=== PATIENT | female | born 1975 | race African-American/Black ===

== ENCOUNTER 2020-05-19 03:40 | Emergency (ER) | payer MEDICAID, OTHER ==
[~2020-05-19] VITALS: Ht 167.6 cm; Wt 91.0 kg
[~2020-05-19 03:40] MED LIST: FERR-43 PO; FERR220S12 PO
[2020-05-19 07:00] VITALS: BP 193/96
[2020-05-19] MEDS ORDERED: HYDROCODONE/ACETAMINOPHEN 10/325MG TABLET PO ONE (07:00)
[2020-05-19] MEDS ORDERED: ONDANSETRON 4MG ODT PO ONE (07:00)
[2020-05-19] MEDS ORDERED: FAMOTIDINE 20MG TABLET PO ONE (07:00)
[2020-05-19 08:06] LABS: BASOPHILS % 1.1 % (0.0-2.0); HEMATOCRIT. 37.6 % (36.0-48.0); HEMOGLOBIN. 11.8 g/dL (12.0-16.0); LYMPHOCYTES % 7.7 % (20.0-50.0); MEAN CORPUSCULAR HEMOGLOBIN 21.4 pg (28.0-32.0); MEAN CORPUSCULAR VOLUME 68.1 fL (81.0-99.0); MEAN PLATELET VOLUME 10.1 fl (7.4-10.4); MONOCYTES % 1.8 % (2.0-8.0); NEUTROPHILS % 89.4 % (40.0-76.0); PLATELET 304 x1000/uL (130-400); RED BLOOD CELL COUNT 5.52 mill/uL (4.2-5.4); RED CELL DISTRIBUTION WIDTH 14.3 % (11.6-14.6)
[2020-05-19 08:09] LABS: PROTHROMBIN TIME 10.3 sec (9.6-11.0)
[2020-05-19 08:14] LABS: CHLORIDE 103 mEq/L (98-107)
[2020-05-19] MEDS ORDERED: SODIUM CHLORIDE 0.9% 1,000 ML IV ONE (08:45)
[2020-05-19 08:46] LABS: PLATELET ESTIMATE NORMAL
[2020-05-19 08:52] LABS: CLARITY URINE CLEAR (CLEAR); COLOR URINE YELLOW (YELLOW); KETONES URINE NEGATIVE (NEGATIVE); LEUKOCYTE ESTERASE URINE NEGATIVE (NEGATIVE); NITRITE URINE NEGATIVE (NEGATIVE); OCCULT BLOOD URINE NEGATIVE (NEGATIVE); PROTEIN URINE TRACE (NEGATIVE); SPECIFIC GRAVITY URINE 1.019 (1.005-1.030); UROBILINOGEN URINE 0.2 E.U./dL (0.2-1.0)
== END 2020-05-19 11:42 | disposition home or self-care (01) ==
LOC: ER 03:40
DX: K85.10 Biliary acute pancreatitis without necrosis or infection (principal)
CPT/HCPCS: 36415; 76705; 80053; 81003; 83690; 85025; 85610; 93005; 99285; J7030; Q0162

== ENCOUNTER 2022-07-05 10:02 | Inpatient (IN) | payer MEDICAID, OTHER ==
[~2022-07-05] VITALS: Ht 167.6 cm; Wt 90.7 kg
[2022-07-05] MEDS ORDERED: MORPHINE SULFATE 4 MG/ML CPJ (NOT FOR IM USE) IV STA (10:20)
[2022-07-05] MEDS ORDERED: FAMOTIDINE 20MG/2ML VIAL IV STA (10:20)
[2022-07-05] MEDS ORDERED: ONDANSETRON HCL 4MG/2ML INJ IV STA (10:20)
[2022-07-05] MEDS ORDERED: SODIUM CHLORIDE 0.9% 1,000 ML IV ONE (10:30)
[2022-07-05] MEDS ORDERED: PIPERACILLIN/TAZ 3.375G PREMIX 50 ML IV ONE (11:45)
[2022-07-05 12:19] LABS: CHLORIDE 99 mEq/L (98-107)
[2022-07-05 12:28] LABS: BASOPHILS % 0.8 % (0.0-2.0); EOSINOPHILS % 0.1 % (0.0-5.0); HEMATOCRIT. 38.9 % (36.0-48.0); HEMOGLOBIN. 12.3 g/dL (12.0-16.0); LYMPHOCYTES % 12.1 % (20.0-50.0); MEAN CORPUSCULAR HEMOGLOBIN 21.6 pg (28.0-32.0); MEAN CORPUSCULAR VOLUME 68.2 fL (81.0-99.0); MONOCYTES % 5.2 % (2.0-8.0); NEUTROPHILS % 81.8 % (40.0-76.0); PLATELET 358 x1000/uL (130-400); RED BLOOD CELL COUNT 5.71 mill/uL (4.2-5.4); RED CELL DISTRIBUTION WIDTH 14.6 % (11.6-14.6)
[2022-07-05 12:52] LABS: HCG SCREEN NEGATIVE
[2022-07-05 13:29] LABS: PLATELET ESTIMATE NORMAL
[2022-07-05] MEDS ORDERED: FAMOTIDINE 20MG/2ML VIAL IV NR (15:00)
[2022-07-05] MEDS ORDERED: PIPERACILLIN/TAZ 3.375G PREMIX 50 ML IV NR (15:00)
[2022-07-05] MEDS ORDERED: MORPHINE SULFATE 4 MG/ML CPJ (NOT FOR IM USE) IV NR (15:00)
[2022-07-05] MEDS ORDERED: ONDANSETRON HCL 4MG/2ML INJ IV NR (15:00)
[2022-07-05] MEDS ORDERED: ONDANSETRON HCL 4MG/2ML INJ IV PRN (17:45)
[2022-07-05] MEDS ORDERED: MORPHINE SULFATE 2 MG/ML CPJ (NOT FOR IM USE) IV PRN (17:45)
[2022-07-05] MEDS ORDERED: NALOXONE HCL 0.4MG/ML VIAL IV PRN (17:45)
[2022-07-05] MEDS: SODIUM CHLORIDE 0.9% 1,000 ML IV SCH (18:16)
[2022-07-05 20:00] VITALS: BP 168/82
[2022-07-05] MEDS: PIPERACILLIN/TAZOBACTAM 3.375 G in DEXTROSE 5% WATER 50 ML IV SCH (21:10)
[2022-07-05 22:25] VITALS: BP 156/77
[2022-07-06] VITALS: BP 122/68
[2022-07-06] MEDS: SODIUM CHLORIDE 0.9% 1,000 ML IV SCH (01:50)
[2022-07-06 04:00] VITALS: BP 117/60
[2022-07-06] MEDS: PIPERACILLIN/TAZOBACTAM 3.375 G in DEXTROSE 5% WATER 50 ML IV SCH (05:16)
[2022-07-06 08:13] VITALS: BP 119/52
[2022-07-06 09:25] LABS: BASOPHILS % 0.6 % (0.0-2.0); EOSINOPHILS % 1.4 % (0.0-5.0); HEMATOCRIT. 34.9 % (36.0-48.0); HEMOGLOBIN. 11.1 g/dL (12.0-16.0); LYMPHOCYTES % 19.8 % (20.0-50.0); MEAN CORPUSCULAR HEMOGLOBIN 21.9 pg (28.0-32.0); MEAN CORPUSCULAR VOLUME 68.7 fL (81.0-99.0); MEAN PLATELET VOLUME 9.8 fl (7.4-10.4); MONOCYTES % 6.5 % (2.0-8.0); NEUTROPHILS % 71.7 % (40.0-76.0); PLATELET 318 x1000/uL (130-400); RED BLOOD CELL COUNT 5.08 mill/uL (4.2-5.4); RED CELL DISTRIBUTION WIDTH 14.2 % (11.6-14.6)
[2022-07-06 10:36] LABS: CHLORIDE 101 mEq/L (98-107)
[2022-07-06 12:00] VITALS: BP 127/51
[2022-07-06 16:00] VITALS: BP 129/67
[2022-07-06 16:10] VITALS: BP 129/67
[2022-07-06] MEDS ORDERED: CIPR500S3 PO (16:30)
== END 2022-07-06 16:20 | disposition home or self-care (01) ==
LOC: ER 10:11 → 6EST 15:04 → EDBEDREQTM 15:07 → EDBEDREQ 15:07 → ENRESERV 15:24
PROVIDERS: ADMIT Internal Medicine; ATTEND Internal Medicine
DX: K80.00 Calculus of gallbladder with acute cholecystitis without obstruction (principal); E87.1 Hypo-osmolality and hyponatremia; E86.1 Hypovolemia; D72.829 Elevated white blood cell count, unspecified; Z98.891 History of uterine scar from previous surgery; Z79.899 Other long term (current) drug therapy
CPT/HCPCS: 36415; 76705; 78227; 80048; 80053; 80076; 84075; 84450; 84460; 84703; 85025; 99285; A9537; J2270; J2405; J2543; J3490; J7030; J7060

== ENCOUNTER 2024-04-03 12:05 | Emergency (ER) | payer MEDICAID ==
[~2024-04-03] VITALS: Ht 172.7 cm; Wt 72.6 kg
[~2024-04-03 12:05] MED LIST changes: +CIPR500S3 PO
[2024-04-03 12:06] VITALS: O2SAT 98
[2024-04-03] MEDS: METHOCARBAMOL 500MG TABLET PO ONE (12:55)
[2024-04-03] MEDS: ACETAMINOPHEN 325MG TABLET PO ONE (12:56)
[2024-04-03] MEDS ORDERED: IBUP-2029 MT (16:12)
[2024-04-03] MEDS ORDERED: METH-653 MT (16:12)
[2024-04-03 17:01] VITALS: BP 182/81; PULSE 56; RESP 18; TEMP 37.05852; O2SAT 100
== END 2024-04-03 17:03 | disposition home or self-care (01) ==
LOC: ER 12:08
DX: S06.0XAA Concussion with loss of consciousness status unknown, initial encounter (principal); Z79.899 Other long term (current) drug therapy; V89.2XXA Person injured in unspecified motor-vehicle accident, traffic, initial encounter; Y93.89 Activity, other specified; Y92.89 Other specified places as the place of occurrence of the external cause; Y99.8 Other external cause status
CPT/HCPCS: 81025; 99284